=== PATIENT | male | born 1950 | race Caucasian/White ===

== ENCOUNTER → 2016-09-30 06:30 | Day surgery (SDC) | payer MEDICARE ==
[~2016-09-30 06:30] MED LIST: Buffered Lidocaine 1% SYR 3ML* 3 ML/SYR SYRINGE INTRADERM ONE; Buffered Lidocaine 1% SYR 3ML* 3 ML/SYR SYRINGE ONE; Bupivacaine 0.25% SDV* 30 ML ONE; Dexamethasone IV* 4 MG/ML 1 ML (4 MG) ONE; DiMENhydriNATE IV* 50 MG/ML VIAL IV PUSH PRN; EPHEDrine (Pressors)* 50 MG/ML VIAL ONE; HYDROcodone/ACETAMIN 5-325 MG* 1 TAB ONE; Ketorolac INJ* 30 MG/ML 1 ML VIAL IV PRN; Lidocaine 2% PF * 5 ML VIAL ONE; Propofol* 10 MG/ML 20 ML BTL IV PUSH ONE; Sodium Citrate/Citric Acid* 15 ML UDC ONE; Sodium Citrate/Citric Acid* 15 ML UDC PO ONE; ceFAZolin 2 GM PREMIX (*) 2 GM/50 ML BAG IVPB ONE; fentaNYL* 50 MCG/ML 2 ML VIAL (100 MCG VIAL) IV PRN; fentaNYL* 50 MCG/ML 2 ML VIAL (100 MCG VIAL) ONE
[2016-09-30 10:52] VITALS: BP 122/82
--- NOTE | 2016-09-30 12:11 | OP ---
OPERATIVE REPORT: DATE OF OPERATION: 09/30/16 DATE OF : 50 SURGEON: Ganga Garcia MD. DRAWING CHECKER: MAURO Hector ANESTHESIOLOGIST: Dr. Licea. ANESTHESIA: General. 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 OPERATIVE PROCEDURE: 1. Right thumb carpometacarpal joint arthroplasty with trapeziectomy. 2. Distally based split flexor carpi radialis tendon transfer for thumb suspension. INDICATIONS: Randall is a 66. He has tried nonoperative treatment. He continues to have severe right thumb base pain. We talked about risks and benefits and he elected to proceed with surgery. FINDINGS: As expected; full-thickness cartilage loss off of the distal aspect of the scaphoid at the scaphotrapezial joint articulation. However, he had no significant full-thickness articular cartilage wear in the scaphotrapezoid joint. ESTIMATED BLOOD LOSS: 10 mL. COMPLICATIONS: None. DESCRIPTION OF PROCEDURE: Randall was seen in the preoperative holding area and the correct site and side were marked. We came back to the operating room, where general anesthesia was induced. The arm was prepped and draped in the usual fashion and a formal time-out was performed. A longitudinal incision was made from the base of the thumb metacarpal down towards to the dorsal aspect of the radial styloid. Dissection was carried down longitudinally. The dorsal sensory branch of the radial nerve was identified and protected. The dissection was carried down until the radial artery was encountered. This was mobilized and retracted out of the way. A longitudinal capsulotomy was then made from the distal aspect of the scaphoid overlying the trapezium and up on to the base of the thumb metacarpal. The scaphotrapezial and carpometacarpal joints were identified. Full capsular and periosteal flaps were raised to expose the entirety of the trapezium. The trapeziotrapezoid joint was also identified. I then used the rongeur to do the trapeziectomy. The flexor carpi radialis tendon was identified in the base of the wound and protected throughout the entirety of the trapeziectomy. Once the trapezium was completely removed, I pulled quite a bit of traction on the index finger and put the Leander elevator into the scaphotrapezoid joint. This was inspected in its entirety and there was no significant full-thickness cartilage , where decision was made to not perform a partial trapeziectomy. I then went ahead and used a couple of sequentially larger drill bits to place my thumb bone tunnel in the standard position. At this point, I irrigated the thumb base wound and then turned my attention to the volar forearm. I went ahead and made a 1 cm transverse incision over the flexor carpi radialis tendon. This was identified and freed up in the sheet. I then 8 or so centimeter proximal to that made a second transverse incision and again identified the FCR tendon and its sheath. I went ahead and freed up all the tendon adhesions between the 2 incisions. I then identified the FCR tendon more proximally and made a transverse incision and again freed up the FCR tendon along its entirety of all of its adhesions and the tendon sheath. I then went back distally to the distal incision and elevated the FCR tendon up into the wound. This was split with a #15 blade and then a 26-gauge wire was placed through this split. A jagdeep was then used to pull the 26-gauge wire sequentially into the 2 proximal forearm wounds and the 26- gauge wire to complete the split of the FCR tendon. The tendon was released in the musculotendinous junction. They freed up and detached tendon tail was then pulled into the distal wound. I completed a little bit more of the split with the tenotomy scissors and then passed a 26-gauge wire that had been doubled back on itself into the thumb base wound from the distal forearm wound. This was then used to pull another 26-gauge wire back in that distal forearm wound. The free tail of the FCR tendon was placed into the loop of that wire and then the FCR tendon tail was pulled down into the thumb base wound using this as a tendon shuttle. With the FCR tendon tail into the thumb base wound, I went ahead and used the tenotomy scissors to complete the split of the tendon all the way down to the base of the second metacarpal at its insertion. The free tendon tail was then passed through the bone tunnel and moved back around the intact limb of the FCR tendon. This was then tensioned appropriately and the tendon transfer was sutured in place with some 3-0 Ethibond suture. The first stitch tied all the limbs together and then the second stitch sowed intact FCR limb to intact FCR limb. Everything was secured nicely and the thumb was in good position, so I went head and involved up the rest of the FCR tendon and tied up all in place with another 3-0 Ethibond stitch. This was then placed between the thumb base and the distal pole of the scaphoid as an interpositioned arthroplasty. The wound was then copiously irrigated and the capsular and periosteal flaps were then sewed back together to close everything up with some 3-0 Ethibond suture. There was a nice watertight sew. I went ahead and placed 4 to 5 mL of 0.25% Marcaine into the side of the trapeziectomy. All the wounds were then again irrigated. Hemostasis was obtained with a Bovie. The volar forearm wounds were closed with 3- 0 buried Polysorb suture followed by 4-0 nylon and the thumb base wound was closed with just 4-0 nylon sutures. I went ahead and infiltrated all the incisions in operative field with quite a bit more of 0.25% Marcaine. I then dressed all the wounds with Xeroform, 4x4s, sterile Webril, and a thumb spica splint was placed with the thumb in the abducted position. Tourniquet was deflated. All the fingers pinked up immediately. The extremity had been exsanguinated and the tourniquet inflated just prior to making skin incision. A total tourniquet time was 103 minutes. The patient was then awoken back up and taken to recovery room in stable condition. [id number]/CPS #: [id number] MTDD
== END | disposition home or self-care (01) ==
LOC: OREAST 06:30
PROVIDERS: ATTEND Orthopaedic Surgery Hand Surgery
DX: M18.11 Unilateral primary osteoarthritis of first carpometacarpal joint, right hand (principal); I10 Essential (primary) hypertension; Z87.891 Personal history of nicotine dependence
CPT/HCPCS: 88304; 88311; A9270-GY; J0690; J1100; J2704; J3010

== ENCOUNTER 2020-07-17 05:48 | Observation (INO) ==
[~2020-07-17 05:48] MED LIST changes: -Buffered Lidocaine 1% SYR 3ML* 3 ML/SYR SYRINGE INTRADERM ONE; -Buffered Lidocaine 1% SYR 3ML* 3 ML/SYR SYRINGE ONE; +Buffered Lidocaine 1% SYRIN 1 ml INTRADERM ONE; -Bupivacaine 0.25% SDV* 30 ML ONE; -Dexamethasone IV* 4 MG/ML 1 ML (4 MG) ONE; -DiMENhydriNATE IV* 50 MG/ML VIAL IV PUSH PRN; -EPHEDrine (Pressors)* 50 MG/ML VIAL ONE; -HYDROcodone/ACETAMIN 5-325 MG* 1 TAB ONE; -Ketorolac INJ* 30 MG/ML 1 ML VIAL IV PRN; +Lactated Ringers 1000 ml BAG 1,000 ML IV SCH; -Lidocaine 2% PF * 5 ML VIAL ONE; -Propofol* 10 MG/ML 20 ML BTL IV PUSH ONE; -Sodium Citrate/Citric Acid* 15 ML UDC ONE; -Sodium Citrate/Citric Acid* 15 ML UDC PO ONE; -ceFAZolin 2 GM PREMIX (*) 2 GM/50 ML BAG IVPB ONE; -fentaNYL* 50 MCG/ML 2 ML VIAL (100 MCG VIAL) IV PRN; -fentaNYL* 50 MCG/ML 2 ML VIAL (100 MCG VIAL) ONE
[2020-07-17] MEDS ORDERED: Lactated Ringers 1000 ml BAG 1,000 ML IV SCH (06:00)
[2020-07-17] MEDS ORDERED: Buffered Lidocaine 1% SYRIN 1 ml INTRADERM ONE (06:00)
[2020-07-17] MEDS ORDERED: ceFAZolin 2 GM PREMIX 2 GM/50 ML BAG ONE (06:01)
[2020-07-17] MEDS ORDERED: Propofol 10 MG/ML 20 ML BTL ONE (06:53)
[2020-07-17] MEDS ORDERED: Dexamethasone IV 4 MG/ML VIAL 1 ml VIAL ONE (06:56)
[2020-07-17] MEDS ORDERED: Ondansetron 4 mg VIAL 2 MG/ML 2 ml VIAL ONE (06:56)
[2020-07-17] MEDS ORDERED: Dexmedetomidine 200 mcg/2 ml 2 ml VIAL (200 mcg) ONE (06:57)
[2020-07-17] MEDS ORDERED: ROPIVACAINE 5 MG/ML 30 ML BTL (0.5%) ONE (06:57)
[2020-07-17] MEDS ORDERED: Lidocaine 2% PF 5 ML VIAL ONE ×2 (06:57→07:05)
[2020-07-17] MEDS ORDERED: Midazolam 2 mg/2 ml VIAL 1 mg/ml 2 ml VIAL (2 mg) ONE (06:58)
[2020-07-17] MEDS ORDERED: Succinylcholine 200 mg VIAL 20 mg/ml 10 ml VIAL (200 mg) ONE (07:04)
[2020-07-17] MEDS ORDERED: fentaNYL 250 mcg/5 ml 50 MCG/ML 5 ml VIAL (250 MCG) ONE (07:05)
[2020-07-17] MEDS ORDERED: Rocuronium 50 mg VIAL 10 mg/ml 5 ml VIAL (50 mg) ONE ×3 (07:06→09:23)
[2020-07-17] MEDS ORDERED: Vancomycin 1,000 MG VIAL ONE (07:29)
[2020-07-17] MEDS ORDERED: Bupivacaine 0.25% SDV 30 ML ONE (07:29)
[2020-07-17] MEDS ORDERED: HYDROmorphone 1 MG/1 ML SYRINGE ONE (08:26)
[2020-07-17] MEDS ORDERED: Phenylephrine 40 mcg/mL 10mL (400mcg) SYRINGE ONE ×2 (08:51→10:27)
[2020-07-17] MEDS ORDERED: Acetaminophen IV 1 GM/100ML 100 ML ONE (09:02)
[2020-07-17] MEDS ORDERED: Bupivacaine 0.25% SDV PF 10 ML VIAL INJ ONE (10:05)
[2020-07-17] MEDS ORDERED: diPHENhydraMINE 25 mg TAB PO PRN (11:01)
[2020-07-17] MEDS ORDERED: Ondansetron ODT 4 mg TAB 4 MG TAB PO PRN (11:01)
[2020-07-17] MEDS ORDERED: oxyCODONE/Acetamin 5/325 mg TAB PO PRN (11:01)
[2020-07-17] MEDS ORDERED: Magnesium Hydroxide LIQ 30 ML UDC PO PRN (11:01)
[2020-07-17] MEDS ORDERED: diPHENhydraMINE IV 50 MG/ML 1 ml VIAL (BENADRYL) IV PRN (11:01)
[2020-07-17] MEDS ORDERED: Morphine 2 MG/ML SYRINGE IV PRN (11:01)
[2020-07-17] MEDS ORDERED: Lactulose 30 ml UDC PO PRN (11:01)
[2020-07-17] MEDS ORDERED: Ondansetron 4 mg VIAL 2 MG/ML 2 ml VIAL IV PRN (11:01)
[2020-07-17] MEDS ORDERED: Naloxone 0.4 mg VIAL 0.4 mg/ml 1 ml VIAL IV PRN (11:22)
[2020-07-17] MEDS ORDERED: DiMENhydriNATE IV 50 mg/ml 1 ml VIAL IV PUSH PRN (11:22)
[2020-07-17] MEDS ORDERED: fentaNYL 100 mcg/2 ml 50 MCG/ML VIAL IV PRN (11:22)
[2020-07-17] MEDS: Lactated Ringers 1000 ml BAG 1,000 ML IV SCH ×2 (12:36→23:45)
[2020-07-17] MEDS: ceFAZolin 1 GM ADVAN 1 GM in NS 0.9% 50 ML 50 ML IVPB SCH ×2 (15:38→23:45)
[2020-07-17] MEDS: Magnesium Hydroxide LIQ 30 ML UDC PO SCH (20:16)
[2020-07-17] MEDS: oxyCODONE/Acetamin 5/325 mg TAB PO PRN (20:17)
[2020-07-18] MEDS: oxyCODONE/Acetamin 5/325 mg TAB PO PRN ×2 (02:22→06:26)
[2020-07-18 06:36] LABS: Hematocrit 38 % (42-52); Hemoglobin 12.5 g/dL (14.0-18.0); Mean Platelet Volume 7.6 fL (7.4-10.4); Platelet Count 255 10^3/uL (150-450)
[2020-07-18 06:55] LABS: BUN/Creatinine Ratio 17.4 (8-20); Calcium 8.2 mg/dL (8.6-10.3); EGFR African American 98.4 (>60); EGFR Non-African American 81.3 (>60)
[2020-07-18] MEDS: ceFAZolin 1 GM ADVAN 1 GM in NS 0.9% 50 ML 50 ML IVPB SCH (07:32)
[2020-07-18] MEDS ORDERED: Vitamin THERAPEUTIC TAB PO SCH (09:00)
[2020-07-18] MEDS: Magnesium Hydroxide LIQ 30 ML UDC PO SCH (09:02)
[2020-07-18 11:15] VITALS: BP 128/63
== END 2020-07-18 12:05 | disposition home or self-care (01) ==
LOC: INTOOBSV 05:48 → AA 05:48 → SSU 12:29
PROVIDERS: ADMIT Orthopaedic Surgery; ATTEND Orthopaedic Surgery

== ENCOUNTER 2020-08-25 08:12 | Observation (INO) ==
[2020-08-25] MEDS ORDERED: NS 0.9% 1000 ml BAG 1,000 ML IV ONE (08:14)
[2020-08-25] MEDS ORDERED: Iodixanol (CONTRAST) 320 MG/ML 100 ML SDV IV ONE (08:45)
[2020-08-25 09:25] LABS: ABS Eosinophils 0.1 10^3/ul (0-0.6); ABS Lymphocytes 1.2 10^3/ul (1.0-4.8); ABS Monocytes 0.5 10^3/ul (0-0.8); ABS Neutrophils 7.5 10^3/ul (1.5-7.7); Eosinophil % 1.4 %; Hematocrit 41 % (42-52); Hemoglobin 13.4 g/dL (14.0-18.0); Mean Corpuscular HGB Conc 33 g/dL (31-36); Mean Corpuscular Hemoglobin 28 pg (27-31); Mean Corpuscular Volume 86 fL (80-94); Mean Platelet Volume 7.5 fL (7.4-10.4); Platelet Count 323 10^3/uL (150-450); Red Blood Count 4.76 10^6 /uL (4.18-5.48); Red Cell Distribution Width 16 % (10-15); White Blood Count 9.3 10^3/uL (3.5-10.8)
[2020-08-25 09:28] LABS: Activated Partial Thrombo Time 29.8 seconds (26.0-38.0); INR 0.98 (0.82-1.09)
[2020-08-25 09:47] LABS: Albumin 3.9 g/dL (3.2-5.2); Albumin/Globulin Ratio 1.4 (1-3); BUN/Creatinine Ratio 28.9 (8-20); Calcium 8.8 mg/dL (8.6-10.3); EGFR African American 122.7 (>60); EGFR Non-African American 101.4 (>60); Globulin 2.8 g/dL (2-4); HDL Cholesterol 76.4 mg/dL; Potassium 4.2 mmol/L (3.5-5.0); Total Bilirubin 0.3 mg/dL (0.2-1.0); Total Protein 6.7 g/dL (6.4-8.9)
[2020-08-25 09:57] LABS: Urine Appearance Clear; Urine Bilirubin Negative (Negative); Urine Blood Negative (Negative); Urine Color Straw; Urine Glucose Negative (Negative); Urine Ketones Negative (Negative); Urine Nitrite Negative (Negative); Urine Protein Negative (Negative); Urine Specific Gravity 1.028 (1.010-1.030); Urine Urobilinogen Negative (Negative)
[2020-08-25] MEDS ORDERED: Al Hydrox/Mg Hydrox/Simet LIQ 30 ML UDC PO PRN (10:34)
[2020-08-25] MEDS ORDERED: Ondansetron 4 mg VIAL 2 MG/ML 2 ml VIAL IV PRN (10:34)
[2020-08-25 11:16] LABS: C Reactive Protein 4.62 mg/L (<8.01)
[2020-08-25 12:18] LABS: Erythrocyte Sed Rate 4 mm/Hr (0-19)
[2020-08-25] MEDS: Enoxaparin 40 MG/0.4 ML SYR SUBCUT SCH (12:49)
[2020-08-25] MEDS ORDERED: Morphine 2 MG/ML SYRINGE IV ONE (21:04)
[2020-08-26] MEDS ORDERED: HYDROcodone/ACETAMIN 5/325 mg TAB PO PRN (08:57)
[2020-08-26] MEDS ORDERED: Senna TAB 8.6 mg TAB PO PRN (08:57)
[2020-08-26] MEDS: Enoxaparin 40 MG/0.4 ML SYR SUBCUT SCH (12:41)
[2020-08-26 14:30] VITALS: BP 149/83
== END 2020-08-26 14:55 | disposition home or self-care (01) ==
LOC: ED 08:12 → MEDTELE 08:12
PROVIDERS: ADMIT Pediatrics; ATTEND Pediatrics

== ENCOUNTER 2021-12-11 11:04 | Inpatient (IN) ==
[2021-12-11] MEDS ORDERED: LORazepam 2 mg VIAL 1 ml IV PUSH ONE ×2 (11:24→12:02)
[2021-12-11] MEDS ORDERED: Lorazepam PYXIS KEY PRN ×2 (11:24→12:02)
[2021-12-11] MEDS ORDERED: Lactated Ringers 1000 ml BAG 1,000 ML IV ONE ×2 (11:24→12:02)
[2021-12-11] MEDS ORDERED: Ondansetron 4 mg VIAL 2 MG/ML 2 ml VIAL IV ONE (11:32)
[2021-12-11] MEDS ORDERED: Diltiazem IV push/loading dose 5 MG/ML 5 ML vial (25 mg) IV SLOW PU ONE (11:49)
[2021-12-11] MEDS ORDERED: Diltiazem IV BAG D5W Premix 125 MG/125 ML BAG IV SCH (12:00)
[2021-12-11 12:12] LABS: Hematocrit 33 % (42-52); Hemoglobin 10.6 g/dL (14.0-18.0); Mean Corpuscular HGB Conc 32 g/dL (31-36); Mean Corpuscular Hemoglobin 25 pg (27-31); Mean Corpuscular Volume 76 fL (80-94); Mean Platelet Volume 7.1 fL (7.4-10.4); Platelet Count 727 10^3/uL (150-450); Red Blood Count 4.31 10^6 /uL (4.18-5.48); Red Cell Distribution Width 22 % (10-15); White Blood Count 7.6 10^3/uL (3.5-10.8)
[2021-12-11 12:22] LABS: High Sens Troponin Baseline 33 pg/mL (<20); INR 1.16 (0.86-1.15)
[2021-12-11 12:30] LABS: ALT 24 U/L (7-52); AST 36 U/L (13-39); Albumin 4.2 g/dL (3.2-5.2); Albumin/Globulin Ratio 1.4 (1-3); Alcohol, S < 13 mg/dL (<13); Alkaline Phosphatase 86 U/L (35-149); Anion Gap 25 mmol/L (2-11); Blood Urea Nitrogen 17 mg/dL (6-24); C Reactive Protein 12.11 mg/L (<8.01); CO2 Carbon Dioxide 20 mmol/L (22-32); Calcium 11.3 mg/dL (8.6-10.3); Chloride 92 mmol/L (101-111); Creatine Kinase 394 U/L (10-223); Globulin 3.1 g/dL (2-4); Glucose 106 mg/dL (70-100); Magnesium 1.8 mg/dL (1.9-2.7); Potassium 3.4 mmol/L (3.5-5.0); Sodium 137 mmol/L (135-145); Total Protein 7.3 g/dL (6.4-8.9); eGFR CKD-EPI 71.8 (>60)
[2021-12-11 12:32] LABS: ABS Lymphocytes 1.6 10^3/ul (1.0-4.8); ABS Monocytes 0.4 10^3/ul (0-0.8); ABS Neutrophils 5.6 10^3/ul (1.5-7.7); ABS Nucleated RBC 0.1 10^3/ul; Lymphocyte % 20.6 %; Nucleated Red Blood Cells % 0.8
[2021-12-11] MEDS ORDERED: Diltiazem (ADVAN VIAL) 100 MG/100 ML ADDV.BAG IV SCH (13:00)
[2021-12-11] MEDS ORDERED: Iohexol 350 (CONTRAST) 500 ML MDV IV ONE (13:11)
[2021-12-11] MEDS ORDERED: Adenosine 3 MG/ML 2 ml VIAL (6 mg) IV PUSH ONE (13:15)
[2021-12-11 13:23] LABS: High Sensitivity Troponin 1 Hr 37 pg/mL (<20)
[2021-12-11] MEDS ORDERED: Metoprolol Tartrate 5 mg VIAL 5 ml VIAL (1 mg/ml) IV ONE (14:29)
[2021-12-11] MEDS ORDERED: Magnesium Sulfate 2 gm BAG 2 GM/50 ML BAG IVPB ONE (14:57)
[2021-12-11] MEDS ORDERED: Dexmedetomidine 1,000 MCG in NS 0.9% 250 ml 240 ML IV SCH (15:00)
[2021-12-11] MEDS ORDERED: Thiamine 100 MG/ML 2 ml VIAL (200 mg) IM ONE (16:25)
[2021-12-11] MEDS ORDERED: LORazepam 2 mg VIAL 1 ml IV PUSH SCH (17:00)
[2021-12-11] MEDS: KCL 20 MEQ/100 ML IVPREMIX 20 MEQ/100 ML BAG IV SCH ×3 (17:22→22:55)
[2021-12-11] MEDS: Multivitamins/Minerals TAB PO SCH (17:24)
[2021-12-11 18:33] LABS: Urine Appearance Clear; Urine Bilirubin Negative (Negative); Urine Blood 2+ (Negative); Urine Color Yellow; Urine Glucose Negative (Negative); Urine Ketones 2+ (Negative); Urine Nitrite Negative (Negative); Urine Protein 1+(30 mg/dL) (Negative); Urine Urobilinogen Negative (Negative)
[2021-12-11 18:40] LABS: Urine Bacteria Absent (Absent); Urine Red Blood Cell Trace(0-2/hpf) (Absent); Urine Squamous Epithelial Cell Present (Absent); Urine White Blood Cell Absent (Absent)
[2021-12-11] MEDS ORDERED: Ondansetron 4 mg VIAL 2 MG/ML 2 ml VIAL IV PRN (20:03)
[2021-12-11] MEDS ORDERED: Pantoprazole VIAL 40 MG VIAL IV SCH (21:00)
[2021-12-12] MEDS: KCL 20 MEQ/100 ML IVPREMIX 20 MEQ/100 ML BAG IV SCH ×7 (02:00→12:11)
[2021-12-12 02:45] LABS: Albumin 3.2 g/dL (3.2-5.2); Magnesium 1.9 mg/dL (1.9-2.7); Potassium 3.1 mmol/L (3.5-5.0); Total Protein 5.6 g/dL (6.4-8.9); eGFR CKD-EPI 85.6 (>60)
[2021-12-12 02:46] LABS: Albumin/Globulin Ratio 1.3 (1-3); Globulin 2.4 g/dL (2-4); Total Bilirubin 0.3 mg/dL (0.2-1.0)
[2021-12-12 02:49] LABS: High Sensitivity Troponin 1 Hr 38 pg/mL (<20)
[2021-12-12 03:13] LABS: Osmolality Serum 281 mOsm/kg (275-295)
[2021-12-12 04:34] LABS: Urine Benzodiazepine Screen Presumptive Positive (None Detect); Urine Cannabinoids Screen None Detected (None Detect); Urine Opiates Screen None Detected (None Detect)
[2021-12-12] MEDS ORDERED: Magnesium Sulfate IV 1GM/100ML 1 GM/100 ML BAG IV ONE (07:15)
[2021-12-12] MEDS: Multivitamins/Minerals TAB PO SCH (08:36)
[2021-12-12] MEDS: Thiamine 100 MG/ML 2 ml VIAL 100 MG in NS 0.9% 50 ML 50 ML IV SCH (08:44)
[2021-12-12 09:08] LABS: INR 1.19 (0.86-1.15)
[2021-12-12 09:09] LABS: Hematocrit 21 % (42-52); Hemoglobin 6.4 g/dL (14.0-18.0); Mean Corpuscular HGB Conc 31 g/dL (31-36); Mean Corpuscular Hemoglobin 25 pg (27-31); Mean Corpuscular Volume 79 fL (80-94); Mean Platelet Volume 6.9 fL (7.4-10.4); Platelet Count 446 10^3/uL (150-450); Red Blood Count 2.61 10^6 /uL (4.18-5.48); Red Cell Distribution Width 23 % (10-15); White Blood Count 4.5 10^3/uL (3.5-10.8)
[2021-12-12 09:18] LABS: ABS Lymphocytes 0.6 10^3/ul (1.0-4.8); ABS Monocytes 0.6 10^3/ul (0-0.8); ABS Neutrophils 3.3 10^3/ul (1.5-7.7); ABS Nucleated RBC 0.1 10^3/ul; Eosinophil % 0.4 %; Lymphocyte % 12.4 %; Nucleated Red Blood Cells % 1.3
[2021-12-12 09:30] LABS: Anisocytosis 2+; Hypochromasia 3+; Microcytosis 1+; Polychromasia 2+
[2021-12-12 09:37] LABS: ABS Lymphocytes 0.9 10^3/ul (1.0-4.8); ABS Monocytes 0.7 10^3/ul (0-0.8); ABS Neutrophils 4.6 10^3/ul (1.5-7.7); Eosinophil % 0.8 %; Hematocrit 28 % (42-52); Hemoglobin 8.8 g/dL (14.0-18.0); Lymphocyte % 13.8 %; Mean Corpuscular HGB Conc 31 g/dL (31-36); Mean Corpuscular Hemoglobin 24 pg (27-31); Mean Corpuscular Volume 75 fL (80-94); Mean Platelet Volume 6.9 fL (7.4-10.4); Nucleated Red Blood Cells % 0.3; Platelet Count 564 10^3/uL (150-450); Red Blood Count 3.71 10^6 /uL (4.18-5.48); Red Cell Distribution Width 23 % (10-15); White Blood Count 6.3 10^3/uL (3.5-10.8)
[2021-12-12 09:44] LABS: Ferritin 18.1 ng/mL (24-336)
[2021-12-12 09:47] LABS: Folate 17.62 ng/mL (5.90-24.80)
[2021-12-12 09:59] LABS: Blood Urea Nitrogen 17 mg/dL (6-24); CO2 Carbon Dioxide 25 mmol/L (22-32); Chloride 85 mmol/L (101-111); Creatine Kinase 198 U/L (10-223); Total Iron Binding Capacity 286 mcg/dL (250-450); Transferrin 204 mg/dL (203-362); eGFR CKD-EPI 94.6 (>60)
[2021-12-12] MEDS ORDERED: Pantoprazole VIAL 40 MG VIAL IV SCH (11:00)
[2021-12-12 11:22] LABS: % Iron Saturation 7 % (15-55); Anion Gap 8 mmol/L (2-11); Glucose 616 mg/dL (70-100); Iron < 20 ug/dL (50-212); Sodium 118 mmol/L (135-145); Unsaturated Iron Binding 266 ug/dL
[2021-12-12 12:26] LABS: Calcium 8.4 mg/dL (8.6-10.3); Potassium 3.7 mmol/L (3.5-5.0)
[2021-12-12] MEDS: Pantoprazole VIAL 40 MG VIAL IV SCH (20:05)
[2021-12-12 20:07] LABS: Hematocrit 26 % (42-52); Hemoglobin 8.2 g/dL (14.0-18.0); Mean Corpuscular HGB Conc 32 g/dL (31-36); Mean Corpuscular Hemoglobin 24 pg (27-31); Mean Corpuscular Volume 76 fL (80-94); Mean Platelet Volume 6.6 fL (7.4-10.4); Platelet Count 572 10^3/uL (150-450); Red Blood Count 3.42 10^6 /uL (4.18-5.48); Red Cell Distribution Width 23 % (10-15); White Blood Count 6.3 10^3/uL (3.5-10.8)
[2021-12-12 20:09] LABS: ABS Eosinophils 0.1 10^3/ul (0-0.6); ABS Lymphocytes 1.3 10^3/ul (1.0-4.8); ABS Monocytes 0.8 10^3/ul (0-0.8); ABS Neutrophils 4.1 10^3/ul (1.5-7.7); Eosinophil % 1.2 %; Lymphocyte % 20.8 %; Nucleated Red Blood Cells % 0.5
[2021-12-13 06:39] LABS: Hematocrit 25 % (42-52); Hemoglobin 7.9 g/dL (14.0-18.0); Mean Corpuscular HGB Conc 32 g/dL (31-36); Mean Corpuscular Hemoglobin 24 pg (27-31); Mean Corpuscular Volume 76 fL (80-94); Platelet Count 487 10^3/uL (150-450); Red Blood Count 3.29 10^6 /uL (4.18-5.48); Red Cell Distribution Width 22 % (10-15); White Blood Count 3.7 10^3/uL (3.5-10.8)
[2021-12-13 06:56] LABS: Albumin/Globulin Ratio 1.3 (1-3); Calcium 8.4 mg/dL (8.6-10.3); Globulin 2.3 g/dL (2-4); Magnesium 1.9 mg/dL (1.9-2.7); Potassium 3.4 mmol/L (3.5-5.0); Total Bilirubin 0.3 mg/dL (0.2-1.0); Total Protein 5.3 g/dL (6.4-8.9); eGFR CKD-EPI 93.9 (>60)
[2021-12-13] MEDS ORDERED: Magnesium Sulfate 2 gm BAG 2 GM/50 ML BAG IVPB ONE (07:16)
[2021-12-13 08:00] LABS: ABS Eosinophils 0.1 10^3/ul (0-0.6); ABS Lymphocytes 0.8 10^3/ul (1.0-4.8); ABS Monocytes 0.4 10^3/ul (0-0.8); ABS Neutrophils 2.4 10^3/ul (1.5-7.7); Eosinophil % 3.3 %; Lymphocyte % 20.3 %; Nucleated Red Blood Cells % 0.3
[2021-12-13] MEDS: Pantoprazole VIAL 40 MG VIAL IV SCH ×2 (12:44→20:56)
[2021-12-13] MEDS ORDERED: Midazolam 10 mg/10 ml VIAL 1 mg/ml 10 ml VIAL (10 mg) ONE (13:47)
[2021-12-13] MEDS ORDERED: fentaNYL 100 mcg/2 ml 50 MCG/ML VIAL ONE (13:47)
[2021-12-13] MEDS ORDERED: diPHENhydraMINE IV 50 MG/ML 1 ml VIAL (BENADRYL) ONE ×2 (13:47→13:52)
[2021-12-13] MEDS: Multivitamins/Minerals TAB PO SCH (16:49)
[2021-12-13] MEDS: Thiamine 100 MG/ML 2 ml VIAL 100 MG in NS 0.9% 50 ML 50 ML IV SCH (17:23)
[2021-12-13] MEDS ORDERED: Iron Sucrose 200 MG in NS 0.9% 100 ml BAG 100 ML IVPB ONE (18:43)
[2021-12-14 07:13] LABS: Hematocrit 27 % (42-52); Hemoglobin 8.5 g/dL (14.0-18.0); Mean Corpuscular HGB Conc 31 g/dL (31-36); Mean Corpuscular Hemoglobin 24 pg (27-31); Mean Corpuscular Volume 77 fL (80-94); Mean Platelet Volume 6.8 fL (7.4-10.4); Platelet Count 488 10^3/uL (150-450); Red Blood Count 3.53 10^6 /uL (4.18-5.48); Red Cell Distribution Width 23 % (10-15); White Blood Count 3.8 10^3/uL (3.5-10.8)
[2021-12-14 07:21] LABS: Calcium 8.6 mg/dL (8.6-10.3); Potassium 3.5 mmol/L (3.5-5.0); eGFR CKD-EPI 95.7 (>60)
[2021-12-14] MEDS ORDERED: Iron Sucrose 200 MG in NS 0.9% 100 ml BAG 100 ML IVPB ONE (10:08)
[2021-12-14] MEDS: Multivitamins/Minerals TAB PO SCH (10:10)
[2021-12-14] MEDS: Pantoprazole VIAL 40 MG VIAL IV SCH (10:16)
[2021-12-14] MEDS: Thiamine 100 MG/ML 2 ml VIAL 100 MG in NS 0.9% 50 ML 50 ML IV SCH (11:09)
[2021-12-14 12:17] VITALS: BP 117/69
== END 2021-12-14 16:05 | disposition home or self-care (01) | DRG 309 ==
LOC: ED 11:04 → EDHOLD 16:09 → SUATTDRO 16:09 → EDHOLD 21:10 → ICU 21:32 → MEDTELE 12-12 16:58
PROVIDERS: ADMIT Student in an Organized Health Care Education/Training Program; ATTEND Internal Medicine